=== PATIENT | male | born 1980 | race Caucasian/White ===

== ENCOUNTER → 2023-12-28 17:51 | Outpatient (BNVA) | payer SELFPAY | PROVIDERS: Family Provider Nurse Practitioner Family; Visit Provider Registered Nurse Neonatal Intensive Care | DX: S99.921A Unspecified injury of right foot, initial encounter (principal); X58.XXXA Exposure to other specified factors, initial encounter; M20.11 Hallux valgus (acquired), right foot; M79.671 Pain in right foot | CPT/HCPCS: 73630 ==